=== PATIENT | female | born 1995 | race Caucasian/White ===

== ENCOUNTER 2016-09-09 11:57 | Emergency (ER) | payer OTHER ==
[2016-09-09 12:41] VITALS: BP 92/65
--- NOTE | 2016-09-09 12:57 | Emergency Department Report ---
HPI - General Chief Complaint: Medical Clearance Time Seen by Provider: 09/09/16 12:45 - HPI HPI: This is a 21-year-old Afro-Swiss female who presents to the emergency department from [facility] with the need for a medical evaluation for possible dehydration. The patient has not been eating or drinking much while at their facility. She also is refusing medications until they appeared to [place] mandatory medications for her. They were telling her that if she did not eat and/or drink that they would have to send her to the hospital and when that is said to her she appears to consume a very small amount but not enough to provide [facility] with the belief that the patient has receiving appropriate nutrition and/or nourishment. The patient herself says that she has just not very hungry. 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 She denies any medical conditions. She denies having a primary care physician. ED Past Medical Hx - Past Medical History Previous Medical History?: No Hx Psychiatric Treatment: Yes - Surgical History Past Surgical History?: No - Social History Smoking Status: Former Smoker Substance Use Type: None - Medications Home Medications: Home Medications Medication Instructions Recorded Confirmed Last Taken Type No Known Home Medications [No 09/09/16 09/09/16 Unknown History Reported Home Medications] ED Review of Systems ROS: Stated complaint: DEHYDRATION Other details as noted in HPI Comment: All other systems reviewed and negative Constitutional: denies: chills, fever Eyes: denies: eye pain, eye discharge, vision change ENT: denies: ear pain, throat pain Respiratory: denies: cough, shortness of breath, wheezing Cardiovascular: denies: chest pain, palpitations Gastrointestinal: denies: abdominal pain, nausea, diarrhea Genitourinary: denies: urgency, dysuria, discharge Musculoskeletal: denies: back pain, joint swelling, arthralgia Skin: denies: rash, lesions Neurological: denies: headache, weakness, paresthesias Physical Exam - Physical Exam Vital Signs: Vital Signs 09/09/16 12:26 Temperature 95.5 F L Pulse Rate 100 H Respiratory 16 Rate Blood Pressure 92/65 O2 Sat by Pulse 100 Oximetry Physical Exam: GENERAL: The patient is well-developed well-nourished. HEENT: Normocephalic. Atraumatic. Extraocular motions are intact. Patient has moist mucous membranes. Pupils equal reactive to light bilaterally. NECK: Supple. Trachea is midline. CHEST/LUNGS: Clear to auscultation. There is no respiratory distress noted. HEART/CARDIOVASCULAR: Regular. There is no tachycardia. There is no gallop rub or murmur. ABDOMEN: Abdomen is soft, nontender. Patient has normal bowel sounds. There is no abdominal distention. SKIN: Skin is warm and dry. NEURO: The patient is awake, alert, and oriented. The patient is cooperative. The patient has no focal neurologic deficits. MUSCULOSKELETAL: There is no tenderness or deformity. There is no limitation range of motion. There is no evidence of acute injury. PSYCH: Patient has a flat affect. ED Course Vital Signs 09/09/16 12:26 Temperature 95.5 F L Pulse Rate 100 H Respiratory 16 Rate Blood Pressure 92/65 O2 Sat by Pulse 100 Oximetry ED Medical Decision Making - Lab Data Result diagrams: 09/09/16 12:53 09/09/16 12:53 - Radiology Data Radiology results: report reviewed Right upper quadrant abdominal ultrasound is a normal examination. - Medical Decision Making This is a 21-year-old female who presents to the emergency department from [facility] with the need for a medical evaluation and possible IV fluids secondary to possible dehydration and/or malnutrition. Allegedly the patient had been exhibiting some catatonia and therefore was not taking any of her medications, eating or drinking much. Over the past few days, with forced medication by psychiatry, the patient is exhibiting improvements but still is not eating or drinking much. The patient today says it is because she does not have much of an appetite but potentially it still could be a psychiatric or control issue. Multiple labs were ordered on this patient to evaluate her nutritional status. She has a slight decrease in her abdomen and creatinine levels showing that maybe there is some decreased nutritional intake. However there is no signs of any significant dehydration. She has a normal BUN to creatinine ratio, the urine is not significantly concentrated and there are no ketones being produced. The rest the patient's labs are mostly unremarkable except for a elevation of her AST level is about twice the normal range. I spoke with the patient again and she denies any abdominal discomfort. The patient was able to display the ability to eat multiple crackers and drink some juice and keep it down without any nausea, vomiting. She did have to be coaxed into doing this. The patient was able to urinate without difficulty. For all these reasons it does not appear that the patient will require admission to the hospital for any significant malnutrition or dehydration. The patient refused IV fluid resuscitation but once again her labs looked appropriate and the patient is able to display oral rehydration ability. Because of the elevated AST level, a right upper quadrant ultrasound will be done. This will be signed out to the next emergency medicine physician and if the ultrasound is normal the patient will return to [facility]. If there is some emergent condition discovered then the patient will either be admitted or a specialist consultation/contacted. - Differential Diagnosis dehydration, malnutrition, psychosis, malingering Critical Care Time: No Critical care attestation.: If time is entered above; I have spent that time in minutes in the direct care of this critically ill patient, excluding procedure time. ED Disposition Clinical Impression: Medical clearance for psychiatric admission, Elevated AST (SGOT) Psychosis Qualifiers: Psychosis type: unspecified psychosis type Qualified Code(s): F29 - Unspecified psychosis not due to a substance or known physiological condition Disposition: DISCHARGED TO HOME OR SELFCARE Is pt being admited?: No Condition: Stable Additional Instructions: Please follow-up with a medicine physician when you are able to do so. It is recommended that you increase your oral rehydration. It is also recommended that you make sure to eat balanced meals and increase your nourishment. Return to the emergency department with any acute distress or if the patient once again does not display the ability to keep herself appropriately hydrated. Referrals: [facility] [Outside] - ARIELLE DEL ANGEL MD [Staff Physician] - MYRANDA Time of Disposition: 15:42
[2016-09-09 13:10] LABS: Hematocrit 42.1 % (30.3-42.9); Hemoglobin 13.7 gm/dl (10.1-14.3); Mean Corpuscular HGB Conc 32 % (30-34); Mean Corpuscular Hemoglobin 30 pg (28-32); Mean Corpuscular Volume 92 fl (79-97); Platelet Count 232 K/mm3 (140-440); Red Cell Distribution Width 13.3 % (13.2-15.2); White Blood Count 5.5 K/mm3 (4.5-11.0)
[2016-09-09] MEDS ORDERED: NACL 0.9% 1000 ML 1,000 ML IV ONE (13:15)
[2016-09-09 13:41] LABS: Anion Gap 16 mmol/L; Blood Urea Nitrogen 10 mg/dL (7-17); Calcium 8.9 mg/dL (8.4-10.2); Carbon Dioxide 24 mmol/L (22-30); Chloride 102.5 mmol/L (98-107); Glucose 83 mg/dL (65-100); Sodium 138 mmol/L (137-145)
[2016-09-09 14:14] LABS: Alanine Aminotransferase 17 units/L (7-56); Albumin 3.8 g/dL (3.9-5); Alkaline Phosphatase 50 units/L (35-129); Total Protein 7.5 g/dL (6.3-8.2)
[2016-09-09 14:16] LABS: Urine Drugs of Abuse Note Disclamer
[2016-09-09 14:19] LABS: Bilirubin,Direct < 0.2 mg/dL (0-0.2)
[2016-09-09 14:27] LABS: Bilirubin,Urine NEG (Negative); Blood,Urine NEG (Negative); Ketones,Urine NEG (Negative); Leukocyte Esterase,Urine NEG (Negative); Mucus,Urine FEW /HPF; Nitrite,Urine NEG (Negative); Protein,Urine <15 mg/dL mg/dL (Negative); Urobilinogen,Urine < 2.0 mg/dL (<2.0)
--- NOTE | 2016-09-09 16:53 | Ultrasound Report ---
FINAL REPORT PROCEDURE: US ABDOMEN LIMITED TECHNIQUE: Real-time sonography was performed of the right upper quadrant of the abdomen with image documentation. CPT 32812 HISTORY: transaminitis, evaluation of liver COMPARISON: No prior studies are available for comparison. FINDINGS: Visualized portions of the pancreas and liver display no abnormalities. Right kidney measures 11.4 cm in length and displays no abnormalities. There is no evidence of cholelithiasis or cholecystitis. Common bile duct measures 3.1 millimeters in diameter. There is no ascites. IMPRESSION: Normal Examination
== END 2016-09-09 18:45 | disposition home or self-care (01) ==
LOC: ED 11:57
DX: F29 Unspecified psychosis not due to a substance or known physiological condition (principal); Z87.891 Personal history of nicotine dependence
CPT/HCPCS: 36415; 76705; 80048; 80074; 80307; 81001; 81025; 84134; 84439; 84443; 85027; 99284; J7030

== ENCOUNTER 2016-09-16 14:10 | Emergency (ER) | payer OTHER ==
[2016-09-16] MEDS ORDERED: NACL 0.9% 1000 ML 1,000 ML IV ONE (15:03)
[2016-09-16 15:22] LABS: Basophils % (Auto) 0.4 % (0.0-1.8); Eosinophils % (Auto) 0.4 % (0.0-4.3); Hematocrit 44.9 % (30.3-42.9); Hemoglobin 14.8 gm/dl (10.1-14.3); Mean Corpuscular HGB Conc 33 % (30-34); Mean Corpuscular Hemoglobin 30 pg (28-32); Mean Corpuscular Volume 90 fl (79-97); Platelet Count 264 K/mm3 (140-440); Red Cell Distribution Width 12.9 % (13.2-15.2); White Blood Count 5.9 K/mm3 (4.5-11.0)
[2016-09-16 15:48] LABS: Anion Gap 27 mmol/L; BUN/Creatinine Ratio 18.88; Blood Urea Nitrogen 17 mg/dL (7-17); Calcium 9.6 mg/dL (8.4-10.2); Carbon Dioxide 22 mmol/L (22-30); Chloride 96.4 mmol/L (98-107); Glucose 66 mg/dL (65-100); Potassium 4.6 mmol/L (3.6-5.0); Sodium 141 mmol/L (137-145)
[2016-09-16 16:05] LABS: Alanine Aminotransferase 13 units/L (7-56); Albumin 4.5 g/dL (3.9-5); Albumin/Globulin Ratio 1.1 %; Alkaline Phosphatase 55 units/L (35-129); Total Protein 8.5 g/dL (6.3-8.2)
--- NOTE | 2016-09-16 17:00 | Emergency Department Report ---
ED General Adult HPI - General Chief complaint: Medical Clearance Stated complaint: REFUSE EAT OR DRINK/SHUT DOWN Time Seen by Provider: 09/16/16 14:36 Source: EMS, RN notes reviewed Mode of arrival: Stretcher Limitations: Language Barrier - History of Present Illness Initial comments: The patient was sent here from [facility] for evaluation and medical screening. Apparently she is admitted for management of schizophrenia and possibly catatonia. I don't have much formation sent along from [place] nor does there staff member seem to know anything about the patient and her medical issues or background. In any case the patient is largely noncommunicative except for an occasional word. It is my understanding that her by mouth intake has been poor. She is however awake and alert although she does not respond to external stimuli or questioning. -: days(s), unknown - Related Data Home Medications Medication Instructions Recorded Confirmed Last Taken Lactose-Reduced Food [Ensure 237 ml PO TID 09/16/16 09/16/16 Unknown Liquid] Megestrol [Megace] 400 mg PO QAM 09/16/16 09/16/16 Unknown Multivitamin Tab [Multiple Vitamin 1 each PO QDAY 09/16/16 09/16/16 Unknown TAB (Theragran)] Venlafaxine HCl [Effexor Xr] 150 mg PO QAM 09/16/16 09/16/16 Unknown risperiDONE [RisperDAL] 1 mg PO BID 09/16/16 09/16/16 Unknown Allergies Allergy/AdvReac Type Severity Reaction Status Date / Time No Known Allergies Allergy Unverified 09/09/16 12:41 ED Review of Systems ROS: Stated complaint: REFUSE EAT OR DRINK/SHUT DOWN Other details as noted in HPI Comment: Unobtainable due to pts medical conditions ED Past Medical Hx - Past Medical History Hx Psychiatric Treatment: Yes (major depression with psychosis) - Surgical History Additional Surgical History: unknown - Social History Smoking Status: Unknown if ever smoked Substance Use Type: None - Medications Home Medications: Home Medications Medication Instructions Recorded Confirmed Last Taken Type Lactose-Reduced Food [Ensure 237 ml PO TID 09/16/16 09/16/16 Unknown History Liquid] Megestrol [Megace] 400 mg PO QAM 09/16/16 09/16/16 Unknown History Multivitamin Tab [Multiple Vitamin 1 each PO QDAY 09/16/16 09/16/16 Unknown History TAB (Theragran)] Venlafaxine HCl [Effexor Xr] 150 mg PO QAM 09/16/16 09/16/16 Unknown History risperiDONE [RisperDAL] 1 mg PO BID 09/16/16 09/16/16 Unknown History ED Physical Exam - General Limitations: Other (according to the patient's redevelopment manager from [place] the patient's [place] language is [place]) General appearance: alert, in no apparent distress - Head Head exam: Present: atraumatic, normocephalic - Eye Eye exam: Present: normal appearance, PERRL, EOMI. Absent: scleral icterus - ENT ENT exam: Present: mucous membranes moist - Neck Neck exam: Present: normal inspection. Absent: tenderness, meningismus - Respiratory Respiratory exam: Present: normal lung sounds bilaterally. Absent: respiratory distress - Cardiovascular Cardiovascular Exam: Present: regular rate, normal rhythm. Absent: systolic murmur, diastolic murmur, rubs, gallop - GI/Abdominal GI/Abdominal exam: Present: soft, normal bowel sounds. Absent: distended, tenderness, guarding, rebound, rigid - Extremities Exam Extremities exam: Present: normal inspection - Back Exam Back exam: Present: normal inspection - Neurological Exam Neurological exam: Present: alert, oriented X3, CN II-XII intact. Absent: motor sensory deficit - Psychiatric Psychiatric exam: Present: normal affect, normal mood - Skin Skin exam: Present: warm, dry, intact, normal color. Absent: rash ED Course Vital Signs 09/16/16 09/16/16 09/16/16 14:24 14:58 14:59 Temperature 98.9 F Pulse Rate 72 78 Respiratory 18 14 13 Rate Blood Pressure 106/74 O2 Sat by Pulse 98 97 Oximetry 09/16/16 09/16/16 09/16/16 15:00 15:02 15:04 Temperature Pulse Rate Respiratory Rate Blood Pressure O2 Sat by Pulse 96 100 100 Oximetry 09/16/16 09/16/16 09/16/16 15:06 15:08 15:09 Temperature Pulse Rate 79 87 Respiratory 14 12 Rate Blood Pressure 108/64 108/64 O2 Sat by Pulse 99 99 100 Oximetry 09/16/16 09/16/16 09/16/16 15:10 15:12 15:14 Temperature Pulse Rate 86 87 89 Respiratory 11 L 13 12 Rate Blood Pressure 108/64 108/64 108/64 O2 Sat by Pulse 100 99 99 Oximetry 09/16/16 09/16/16 09/16/16 15:16 15:18 15:20 Temperature Pulse Rate 84 75 72 Respiratory 11 L 12 14 Rate Blood Pressure 108/64 108/64 108/64 O2 Sat by Pulse 100 98 99 Oximetry 09/16/16 09/16/16 09/16/16 15:22 15:24 15:26 Temperature Pulse Rate 72 83 75 Respiratory 12 17 12 Rate Blood Pressure 108/64 108/64 108/64 O2 Sat by Pulse 99 98 99 Oximetry 09/16/16 09/16/16 09/16/16 15:28 15:30 15:32 Temperature Pulse Rate 78 74 69 Respiratory 11 L 11 L 14 Rate Blood Pressure 108/64 108/64 108/64 O2 Sat by Pulse 100 98 98 Oximetry 09/16/16 09/16/16 09/16/16 15:34 15:36 15:38 Temperature Pulse Rate 85 69 66 Respiratory 13 13 15 Rate Blood Pressure 108/64 108/64 108/64 O2 Sat by Pulse 98 98 97 Oximetry 09/16/16 09/16/16 09/16/16 15:40 15:42 15:44 Temperature Pulse Rate 75 67 65 Respiratory 13 14 14 Rate Blood Pressure 108/64 108/64 108/64 O2 Sat by Pulse 100 99 99 Oximetry 09/16/16 09/16/16 09/16/16 15:46 15:48 15:50 Temperature Pulse Rate 66 82 82 Respiratory 16 15 12 Rate Blood Pressure 108/64 108/64 108/64 O2 Sat by Pulse 98 100 100 Oximetry 09/16/16 09/16/16 09/16/16 15:52 15:54 15:56 Temperature Pulse Rate 77 73 74 Respiratory 12 14 15 Rate Blood Pressure 108/64 108/64 108/64 O2 Sat by Pulse 100 100 100 Oximetry 09/16/16 09/16/16 09/16/16 15:58 16:00 16:02 Temperature Pulse Rate 79 73 72 Respiratory 12 10 L 8 L Rate Blood Pressure 108/64 106/65 106/65 O2 Sat by Pulse 100 100 100 Oximetry 09/16/16 09/16/16 09/16/16 16:04 16:06 16:08 Temperature Pulse Rate 77 68 71 Respiratory 11 L 13 15 Rate Blood Pressure 106/65 106/65 106/65 O2 Sat by Pulse 83 L 100 100 Oximetry 09/16/16 09/16/16 09/16/16 16:10 16:12 16:14 Temperature Pulse Rate 70 71 68 Respiratory 19 16 18 Rate Blood Pressure 106/65 106/65 106/65 O2 Sat by Pulse 100 100 100 Oximetry 09/16/16 09/16/16 09/16/16 16:16 16:18 16:20 Temperature Pulse Rate 69 67 65 Respiratory 10 L 12 15 Rate Blood Pressure 106/65 106/65 106/65 O2 Sat by Pulse 100 100 100 Oximetry 09/16/16 09/16/16 09/16/16 16:22 16:24 16:26 Temperature Pulse Rate 67 70 72 Respiratory 12 17 10 L Rate Blood Pressure 106/65 106/65 106/65 O2 Sat by Pulse 100 98 100 Oximetry 09/16/16 09/16/16 09/16/16 16:28 16:30 16:32 Temperature Pulse Rate 75 71 69 Respiratory 15 15 12 Rate Blood Pressure 106/65 106/65 106/65 O2 Sat by Pulse 98 98 99 Oximetry 09/16/16 09/16/16 09/16/16 16:34 16:36 16:40 Temperature Pulse Rate 68 70 Respiratory 13 15 20 Rate Blood Pressure 106/65 106/65 O2 Sat by Pulse 98 97 100 Oximetry - Reevaluation(s) Reevaluation #1: The patient was given a liter of IV fluid. She was a little bit more interactive. I do not see any evidence of an ankle indication for hospitalization. I believe the patient is suffering from an acute psychosis perhaps catatonia. This is best treated in a psychiatric hospital. She is medically cleared to return to her treatment program. 09/16/16 17:56 ED Medical Decision Making - Lab Data Result diagrams: 09/16/16 15:07 09/16/16 15:07 Laboratory Results - last 24 hr 09/16/16 09/16/16 09/16/16 15:07 15:07 15:07 WBC RBC Hgb Hct MCV MCH MCHC RDW Plt Count Lymph % (Auto) Keith % (Auto) Eos % (Auto) Baso % (Auto) Lymph # Keith # Eos # Baso # Seg Neutrophils % Seg Neutrophils # Sodium 141 Potassium 4.6 Chloride 96.4 L Carbon Dioxide 22 Anion Gap 27 BUN 17 Creatinine 0.9 Estimated GFR > 60 BUN/Creatinine Ratio 18.88 Glucose 66 Calcium 9.6 Magnesium Total Bilirubin Direct Bilirubin AST ALT Alkaline Phosphatase Total Protein Albumin Albumin/Globulin Ratio HCG, Qual Negative Plasma/Serum Alcohol < 0.01 09/16/16 09/16/16 15:07 15:07 WBC 5.9 RBC 5.00 Hgb 14.8 H Hct 44.9 H MCV 90 MCH 30 MCHC 33 RDW 12.9 L Plt Count 264 Lymph % (Auto) 22.6 Keith % (Auto) 8.4 H Eos % (Auto) 0.4 Baso % (Auto) 0.4 Lymph # 1.3 Keith # 0.5 Eos # 0.0 Baso # 0.0 Seg Neutrophils % 68.2 Seg Neutrophils # 4.0 Sodium Potassium Chloride Carbon Dioxide Anion Gap BUN Creatinine Estimated GFR BUN/Creatinine Ratio Glucose Calcium Magnesium 2.10 Total Bilirubin 0.50 Direct Bilirubin 0.0 AST 23 ALT 13 Alkaline Phosphatase 55 Total Protein 8.5 H Albumin 4.5 Albumin/Globulin Ratio 1.1 HCG, Qual Plasma/Serum Alcohol Laboratory Results - last 24 hr 09/16/16 09/16/16 09/16/16 15:07 15:07 15:07 WBC RBC Hgb Hct MCV MCH MCHC RDW Plt Count Lymph % (Auto) Keith % (Auto) Eos % (Auto) Baso % (Auto) Lymph # Keith # Eos # Baso # Seg Neutrophils % Seg Neutrophils # Sodium 141 Potassium 4.6 Chloride 96.4 L Carbon Dioxide 22 Anion Gap 27 BUN 17 Creatinine 0.9 Estimated GFR > 60 BUN/Creatinine Ratio 18.88 Glucose 66 Calcium 9.6 Magnesium Total Bilirubin Direct Bilirubin AST ALT Alkaline Phosphatase Total Protein Albumin Albumin/Globulin Ratio HCG, Qual Negative Plasma/Serum Alcohol < 0.01 09/16/16 09/16/16 15:07 15:07 WBC 5.9 RBC 5.00 Hgb 14.8 H Hct 44.9 H MCV 90 MCH 30 MCHC 33 RDW 12.9 L Plt Count 264 Lymph % (Auto) 22.6 Keith % (Auto) 8.4 H Eos % (Auto) 0.4 Baso % (Auto) 0.4 Lymph # 1.3 Keith # 0.5 Eos # 0.0 Baso # 0.0 Seg Neutrophils % 68.2 Seg Neutrophils # 4.0 Sodium Potassium Chloride Carbon Dioxide Anion Gap BUN Creatinine Estimated GFR BUN/Creatinine Ratio Glucose Calcium Magnesium 2.10 Total Bilirubin 0.50 Direct Bilirubin 0.0 AST 23 ALT 13 Alkaline Phosphatase 55 Total Protein 8.5 H Albumin 4.5 Albumin/Globulin Ratio 1.1 HCG, Qual Plasma/Serum Alcohol Laboratory Results - last 24 hr 09/16/16 09/16/16 09/16/16 15:07 15:07 15:07 WBC RBC Hgb Hct MCV MCH MCHC RDW Plt Count Lymph % (Auto) Keith % (Auto) Eos % (Auto) Baso % (Auto) Lymph # Keith # Eos # Baso # Seg Neutrophils % Seg Neutrophils # Sodium 141 Potassium 4.6 Chloride 96.4 L Carbon Dioxide 22 Anion Gap 27 BUN 17 Creatinine 0.9 Estimated GFR > 60 BUN/Creatinine Ratio 18.88 Glucose 66 Calcium 9.6 Magnesium Total Bilirubin Direct Bilirubin AST ALT Alkaline Phosphatase Total Protein Albumin Albumin/Globulin Ratio HCG, Qual Negative Urine Color Urine Turbidity Urine pH Ur Specific [place] Urine Protein Urine Glucose (UA) Urine Ketones Urine Blood Urine Nitrite Urine Bilirubin Urine Urobilinogen Ur Leukocyte Esterase Urine WBC (Auto) Urine RBC (Auto) U Epithel Cells (Auto) Urine Mucus Urine HCG, Qual Urine Opiates Screen Urine Methadone Screen Ur Barbiturates Screen Ur Phencyclidine Scrn Ur Amphetamines Screen U Benzodiazepines Scrn Urine Cocaine Screen U Marijuana (THC) Screen Drugs of Abuse Note Plasma/Serum Alcohol < 0.01 09/16/16 09/16/16 09/16/16 15:07 15:07 17:38 WBC 5.9 RBC 5.00 Hgb 14.8 H Hct 44.9 H MCV 90 MCH 30 MCHC 33 RDW 12.9 L Plt Count 264 Lymph % (Auto) 22.6 Keith % (Auto) 8.4 H Eos % (Auto) 0.4 Baso % (Auto) 0.4 Lymph # 1.3 Keith # 0.5 Eos # 0.0 Baso # 0.0 Seg Neutrophils % 68.2 Seg Neutrophils # 4.0 Sodium Potassium Chloride Carbon Dioxide Anion Gap BUN Creatinine Estimated GFR BUN/Creatinine Ratio Glucose Calcium Magnesium 2.10 Total Bilirubin 0.50 Direct Bilirubin 0.0 AST 23 ALT 13 Alkaline Phosphatase 55 Total Protein 8.5 H Albumin 4.5 Albumin/Globulin Ratio 1.1 HCG, Qual Urine Color Karmen Urine Turbidity Cloudy Urine pH 5.0 Ur Specific [place] 1.031 H Urine Protein 100 mg/dl Urine Glucose (UA) Neg Urine Ketones 20 Urine Blood Neg Urine Nitrite Neg Urine Bilirubin Neg Urine Urobilinogen < 2.0 Ur Leukocyte Esterase Sm Urine WBC (Auto) 6.0 Urine RBC (Auto) 3.0 U Epithel Cells (Auto) 33.0 H Urine Mucus 3+ Urine HCG, Qual Urine Opiates Screen Urine Methadone Screen Ur Barbiturates Screen Ur Phencyclidine Scrn Ur Amphetamines Screen U Benzodiazepines Scrn Urine Cocaine Screen U Marijuana (THC) Screen Drugs of Abuse Note Plasma/Serum Alcohol 09/16/16 09/16/16 17:38 17:38 WBC RBC Hgb Hct MCV MCH MCHC RDW Plt Count Lymph % (Auto) Keith % (Auto) Eos % (Auto) Baso % (Auto) Lymph # Keith # Eos # Baso # Seg Neutrophils % Seg Neutrophils # Sodium Potassium Chloride Carbon Dioxide Anion Gap BUN Creatinine Estimated GFR BUN/Creatinine Ratio Glucose Calcium Magnesium Total Bilirubin Direct Bilirubin AST ALT Alkaline Phosphatase Total Protein Albumin Albumin/Globulin Ratio HCG, Qual Urine Color Urine Turbidity Urine pH Ur Specific [place] Urine Protein Urine Glucose (UA) Urine Ketones Urine Blood Urine Nitrite Urine Bilirubin Urine Urobilinogen Ur Leukocyte Esterase Urine WBC (Auto) Urine RBC (Auto) U Epithel Cells (Auto) Urine Mucus Urine HCG, Qual Negative Urine Opiates Screen Presumptive negative Urine Methadone Screen Presumptive negative Ur Barbiturates Screen Presumptive negative Ur Phencyclidine Scrn Presumptive negative Ur Amphetamines Screen Presumptive negative U Benzodiazepines Scrn Presumptive negative Urine Cocaine Screen Presumptive negative U Marijuana (THC) Screen Presumptive negative Drugs of Abuse Note Disclamer Plasma/Serum Alcohol Critical care attestation.: If time is entered above; I have spent that time in minutes in the direct care of this critically ill patient, excluding procedure time. ED Disposition Clinical Impression: Medical clearance for psychiatric admission, Catatonia, Volume depletion Psychosis Qualifiers: Psychosis type: unspecified psychosis type Qualified Code(s): F29 - Unspecified psychosis not due to a substance or known physiological condition Disposition: DISCHARGED TO HOME OR SELFCARE Is pt being admited?: No Does the pt Need Aspirin: No Condition: Stable Instructions: Schizophrenia (ED) Additional Instructions: I would recommend that the patient be followed by an crime investigator special agent as well as continue her psychiatric treatment. We did not find any medical indication for hospitalization at this time. Referrals: PRIMARY CARE, [Primary Care Provider] - 3-5 Days Time of Disposition: 19:13
[2016-09-16 17:49] LABS: Urine Drugs of Abuse Note Disclamer
[2016-09-16 18:10] LABS: Bilirubin,Urine NEG (Negative); Blood,Urine NEG (Negative); Ketones,Urine 20 mg/dL (Negative); Leukocyte Esterase,Urine SM (Negative); Mucus,Urine 3+ /HPF; Nitrite,Urine NEG (Negative); Urobilinogen,Urine < 2.0 mg/dL (<2.0)
[2016-09-16 19:35] VITALS: BP 99/62
== END 2016-09-16 23:23 | disposition home or self-care (01) ==
LOC: ED 14:10
DX: E86.9 Volume depletion, unspecified (principal); F29 Unspecified psychosis not due to a substance or known physiological condition; F20.2 Catatonic schizophrenia; F32.9 Major depressive disorder, single episode, unspecified
CPT/HCPCS: 36415; 51701; 80048; 80074; 80307; 81001; 81025; 83735; 84703; 85025; 96360; 96361; 99284; G0480; J7030; 80320